=== PATIENT | male | born 1980 | race Caucasian/White ===

== ENCOUNTER 2020-01-18 13:25 | Emergency (ER) | payer MEDICAID ==
[2020-01-18] MEDS ORDERED: normal saline 1000ML IV soln IVB ONE (15:30)
[2020-01-18 15:48] LABS: BASOPHILS % (AUTO) 0.6 % (0-1); EOSINOPHILS # (AUTO) 0.1 X10'3 (0-0.9); EOSINOPHILS % (AUTO) 1.3 % (0-6); HEMATOCRIT 41.8 % (42.0-52.0); LYMPHOCYTES # (AUTO) 1.5 X10'3 (1.1-4.8); LYMPHOCYTES % (AUTO) 23.1 % (21-51); MEAN CORPUSCULAR HEMOGLOBIN 33.4 PG (27.0-31.0); MEAN CORPUSCULAR HGB CONC 33.5 g/dL (33.0-36.5); MEAN CORPUSCULAR VOLUME 99.9 FL (78-98); MEAN PLATELET VOLUME 7.1 FL (7.4-10.4); MONOCYTES # (AUTO) 0.8 X10'3 (0-0.9); MONOCYTES % (AUTO) 12.5 % (2-12); NEUTROPHILS # (AUTO) 3.9 X10'3 (1.8-7.7); NEUTROPHILS % (AUTO) 62.5 % (42-75); PLATELET COUNT 101 X10'3 (140-440); RED BLOOD COUNT 4.19 X10'6 (4.70-6.10); RED CELL DISTRIBUTION WIDTH 15.6 % (11.5-14.5); WHITE BLOOD COUNT 6.3 X10'3 (4.5-11.0)
[2020-01-18 16:04] LABS: ALANINE AMINOTRANSFERASE 209 U/L (12-78); ALBUMIN/GLOBULIN RATIO 0.7 (1.1-1.5); ALKALINE PHOSPHATASE 91 IU/L (46-116); ANION GAP 8 (8-16); ASPARTATE AMINO TRANSFERASE 197 U/L (10-37); BILIRUBIN,TOTAL 0.5 MG/DL (0.1-1.0); BLOOD UREA NITROGEN 7 MG/DL (7-18); BUN/CREATININE RATIO 6.4 (5.4-32.0); CALCIUM 8.3 MG/DL (8.5-10.1); CHLORIDE 103 MMOL/L (99-107); GLUCOSE 115 MG/DL (70-104); POTASSIUM 3.6 MMOL/L (3.5-5.1); SODIUM 138 MMOL/L (135-145); TOTAL CARBON DIOXIDE 27.1 MMOL/L (24-32); TOTAL PROTEIN 7.4 G/DL (6.4-8.2); eGFR 75 ML/MIN
[2020-01-18] MEDS ORDERED: CEPH250T PO (16:27)
[2020-01-18 16:44] VITALS: BP 148/102
== END 2020-01-18 16:46 | disposition home or self-care (01) ==
LOC: ER 13:26
DX: S80.811A Abrasion, right lower leg, initial encounter (principal); R74.0 Nonspecific elevation of levels of transaminase and lactic acid dehydrogenase [LDH]; R59.0 Localized enlarged lymph nodes; F17.200 Nicotine dependence, unspecified, uncomplicated; Z79.899 Other long term (current) drug therapy; X58.XXXA Exposure to other specified factors, initial encounter; Y93.89 Activity, other specified; Y92.89 Other specified places as the place of occurrence of the external cause; Y99.8 Other external cause status
CPT/HCPCS: 36415; 80053; 85025; 99283; J7030

== ENCOUNTER 2020-01-24 16:02 | Emergency (ER) | payer MEDICAID ==
[~2020-01-24] VITALS: Ht 185.4 cm; Wt 84.5 kg
[~2020-01-24 16:02] MED LIST: CEPH250T PO
[2020-01-24] MEDS ORDERED: normal saline 1000ML IV soln IV ONE (17:10)
[2020-01-24 18:15] LABS: BASOPHILS % (AUTO) 0.6 % (0-1); EOSINOPHILS # (AUTO) 0.2 X10'3 (0-0.9); HEMATOCRIT 42.4 % (42.0-52.0); HEMOGLOBIN 14.3 g/dl (14.0-17.9); LYMPHOCYTES # (AUTO) 2.2 X10'3 (1.1-4.8); LYMPHOCYTES % (AUTO) 28.4 % (21-51); MEAN CORPUSCULAR HEMOGLOBIN 33.9 PG (27.0-31.0); MEAN CORPUSCULAR HGB CONC 33.8 g/dL (33.0-36.5); MEAN CORPUSCULAR VOLUME 100.4 FL (78-98); MEAN PLATELET VOLUME 7.2 FL (7.4-10.4); MONOCYTES # (AUTO) 1.1 X10'3 (0-0.9); NEUTROPHILS # (AUTO) 4.3 X10'3 (1.8-7.7); PLATELET COUNT 151 X10'3 (140-440); RED BLOOD COUNT 4.22 X10'6 (4.70-6.10); RED CELL DISTRIBUTION WIDTH 15.9 % (11.5-14.5); WHITE BLOOD COUNT 7.8 X10'3 (4.5-11.0)
[2020-01-24] MEDS ORDERED: HYDROcodone/acetaminophen 5mg/325mg tablet PO ONE (18:35)
[2020-01-24] MEDS ORDERED: ondansetron 4mg rapidly disintigrating tab PO ONE (18:35)
[2020-01-24 18:39] VITALS: BP 101/73
[2020-01-24] MEDS ORDERED: HYDR-4383 PO (18:40)
[2020-01-24] MEDS ORDERED: ONDA4TAB6 PO (18:40)
[2020-01-24] MEDS ORDERED: CEPH250T PO (18:40)
[2020-01-24 18:42] LABS: ALANINE AMINOTRANSFERASE 132 U/L (12-78); ALBUMIN 3.4 G/DL (3.4-5.0); ALBUMIN/GLOBULIN RATIO 0.8 (1.1-1.5); ALKALINE PHOSPHATASE 125 IU/L (46-116); ANION GAP 10 (8-16); ASPARTATE AMINO TRANSFERASE 141 U/L (10-37); BILIRUBIN,TOTAL 0.5 MG/DL (0.1-1.0); BLOOD UREA NITROGEN 5 MG/DL (7-18); C-REACTIVE PROTEIN 0.31 MG/DL (0.0-0.5); CALCIUM 8.8 MG/DL (8.5-10.1); CHLORIDE 104 MMOL/L (99-107); CREATININE 1.24 MG/DL (0.60-1.10); GLUCOSE 101 MG/DL (70-104); POTASSIUM 3.5 MMOL/L (3.5-5.1); SODIUM 140 MMOL/L (135-145); TOTAL PROTEIN 7.8 G/DL (6.4-8.2); eGFR 65 ML/MIN
== END 2020-01-24 20:04 | disposition home or self-care (01) ==
LOC: ER 16:04
DX: S62.396A Other fracture of fifth metacarpal bone, right hand, initial encounter for closed fracture (principal); S62.521A Displaced fracture of distal phalanx of right thumb, initial encounter for closed fracture; S22.31XA Fracture of one rib, right side, initial encounter for closed fracture; J44.9 Chronic obstructive pulmonary disease, unspecified; R51 Headache; Z79.899 Other long term (current) drug therapy; W51.XXXA Accidental striking against or bumped into by another person, initial encounter; Y93.89 Activity, other specified; Y92.89 Other specified places as the place of occurrence of the external cause; Y99.8 Other external cause status
CPT/HCPCS: 29125; 36415; 70450; 71046; 73130; 80053; 83605; 83735; 84145; 85025; 85651; 86140; 87040; 96360; 96361; 99285; J7030

== ENCOUNTER 2020-05-05 18:31 | Emergency (ER) | payer MEDICAID ==
[~2020-05-05] VITALS: Ht 185.4 cm; Wt 88.6 kg
[~2020-05-05 18:31] MED LIST changes: -CEPH250T PO; +HYDR-4383 PO; +ONDA4TAB6 PO
[2020-05-05 18:35] VITALS: BP 98/60
== END 2020-05-05 19:41 | disposition home or self-care (01) ==
LOC: ER 18:32
DX: Z48.01 Encounter for change or removal of surgical wound dressing (principal); R50.9 Fever, unspecified; J43.9 Emphysema, unspecified; Z79.899 Other long term (current) drug therapy
CPT/HCPCS: 99281

== ENCOUNTER 2020-05-07 09:45 | Outpatient (CLI) | payer MEDICAID ==
[2020-05-07] MEDS ORDERED: LIDOcaine 2% 5ml jelly ONE (10:16)
== END 2020-05-07 23:59 | disposition home or self-care (01) ==
LOC: WOUND CARE 09:45
PROVIDERS: ATTEND Nurse Practitioner
DX: S61.401A Unspecified open wound of right hand, initial encounter (principal); L98.492 Non-pressure chronic ulcer of skin of other sites with fat layer exposed; J43.9 Emphysema, unspecified; F17.200 Nicotine dependence, unspecified, uncomplicated; Z86.19 Personal history of other infectious and parasitic diseases; Z79.899 Other long term (current) drug therapy; X58.XXXA Exposure to other specified factors, initial encounter; Y93.89 Activity, other specified; Y92.89 Other specified places as the place of occurrence of the external cause; Y99.8 Other external cause status
CPT/HCPCS: 11042; 11045; 87070; 87075

== ENCOUNTER 2020-05-15 10:43 | Outpatient (CLI) | payer MEDICAID ==
[2020-05-15] MEDS ORDERED: LIDOcaine 2% 5ml jelly ONE (11:36)
== END 2020-05-15 23:59 | disposition home or self-care (01) ==
LOC: WOUND CARE 10:43
PROVIDERS: ATTEND Nurse Practitioner Family
DX: S61.401D Unspecified open wound of right hand, subsequent encounter (principal); L98.492 Non-pressure chronic ulcer of skin of other sites with fat layer exposed; J43.9 Emphysema, unspecified; F17.200 Nicotine dependence, unspecified, uncomplicated; Z86.19 Personal history of other infectious and parasitic diseases; Z79.899 Other long term (current) drug therapy; X58.XXXD Exposure to other specified factors, subsequent encounter
CPT/HCPCS: 82948; 97605

== ENCOUNTER 2020-05-22 11:27 | Outpatient (CLI) | payer MEDICAID | END 2020-05-22 23:59 | disposition home or self-care (01) | LOC: WOUND CARE 11:27 | PROVIDERS: ATTEND Nurse Practitioner | DX: S61.401D Unspecified open wound of right hand, subsequent encounter (principal); L98.492 Non-pressure chronic ulcer of skin of other sites with fat layer exposed; J43.9 Emphysema, unspecified; F17.200 Nicotine dependence, unspecified, uncomplicated; Z86.19 Personal history of other infectious and parasitic diseases; Z79.899 Other long term (current) drug therapy; X58.XXXD Exposure to other specified factors, subsequent encounter | CPT/HCPCS: 97605 ==

== ENCOUNTER 2020-05-24 13:19 | Outpatient (CLI) | payer MEDICAID ==
[2020-05-24] MEDS ORDERED: CHLO25CA10 PO (15:07)
[2020-05-24] MEDS ORDERED: ALBU8.5H8 INH (15:07)
[2020-05-24] MEDS ORDERED: TIOT4MIS3 INH (15:07)
[2020-05-24] MEDS ORDERED: IBUP-1985 PO (15:07)
[2020-05-24] MEDS ORDERED: BUPR150T8 PO (15:07)
== END 2020-05-24 23:59 | disposition home or self-care (01) ==
LOC: WOUND CARE 13:19
PROVIDERS: ATTEND Nurse Practitioner
DX: S61.401D Unspecified open wound of right hand, subsequent encounter (principal); L98.492 Non-pressure chronic ulcer of skin of other sites with fat layer exposed; J43.9 Emphysema, unspecified; F17.200 Nicotine dependence, unspecified, uncomplicated; Z86.19 Personal history of other infectious and parasitic diseases; Z79.899 Other long term (current) drug therapy; X58.XXXD Exposure to other specified factors, subsequent encounter
CPT/HCPCS: 97605

== ENCOUNTER 2020-05-30 11:00 | Day surgery (SDC) | payer MEDICAID ==
[2020-05-24 14:35] LABS: BASOPHILS % (AUTO) 0.5 % (0-1); EOSINOPHILS # (AUTO) 0.2 X10'3 (0-0.9); EOSINOPHILS % (AUTO) 4.3 % (0-6); LYMPHOCYTES # (AUTO) 1.6 X10'3 (1.1-4.8); LYMPHOCYTES % (AUTO) 30.9 % (21-51); MEAN CORPUSCULAR HGB CONC 34.1 g/dL (33.0-36.5); MEAN CORPUSCULAR VOLUME 96.7 FL (78-98); MEAN PLATELET VOLUME 7.6 FL (7.4-10.4); MONOCYTES # (AUTO) 0.7 X10'3 (0-0.9); MONOCYTES % (AUTO) 14.4 % (2-12); NEUTROPHILS # (AUTO) 2.6 X10'3 (1.8-7.7); NEUTROPHILS % (AUTO) 49.9 % (42-75); PRE OP HEMOGLOBIN 13.3 g/dL (14.0-17.9); PRE OP PLATELET COUNT 122 X10'3 (140-440); RED BLOOD COUNT 4.03 X10'6 (4.70-6.10); RED CELL DISTRIBUTION WIDTH 14.6 % (11.5-14.5)
[2020-05-24 14:56] LABS: ALBUMIN 3.6 G/DL (3.4-5.0); ALBUMIN/GLOBULIN RATIO 0.8 (1.1-1.5); ALKALINE PHOSPHATASE 85 IU/L (46-116); BLOOD UREA NITROGEN 6 MG/DL (7-18); BUN/CREATININE RATIO 6.9 (5.4-32.0); CALCIUM 8.9 MG/DL (8.5-10.1); CHLORIDE 103 MMOL/L (99-107); CREATININE 0.87 MG/DL (0.60-1.10); PRE OP ANION GAP 4 (8-16); PRE OP BILIRUB, TOTAL 0.7 MG/DL (0.0-1.0); PRE OP GLUCOSE 100 MG/DL (70-104); PRE OP POTASSIUM 4.6 MMOL/L (3.4-5.1); PRE OP SODIUM 139 MMOL/L (135-145); TOTAL CARBON DIOXIDE 32.3 MMOL/L (24-32); TOTAL PROTEIN 8.2 G/DL (6.4-8.2); eGFR > 90 ML/MIN
[2020-05-24 15:00] LABS: PRE OP AST 153 U/L (10-37)
[2020-05-24 15:01] LABS: PRE OP ALT 235 U/L (30-65)
[~2020-05-30] VITALS: Ht 185.4 cm; Wt 90.8 kg
[2020-05-30] VITALS (9 sets, daily range): BP systolic 114–138; BP diastolic 74–94
[~2020-05-30 11:00] MED LIST changes: +ALBU8.5H8 INH; +BUPR150T8 PO; +CHLO25CA10 PO; +IBUP-1985 PO; -ONDA4TAB6 PO; +TIOT4MIS3 INH; +ceFAZolin 2gm in dextrose, iso 50 ML IV ONE; +famotidine 20mg tablet PO ONE; +ringers solution, lacted 1,000 ML IV SCH
[2020-05-30] MEDS ORDERED: ondansetron/PF 4mg/2ml inj ONE (14:08)
[2020-05-30] MEDS ORDERED: sevoflurane 250ml liquid IH ONE (14:08)
[2020-05-30] MEDS ORDERED: fentaNYL/PF 50MCG/1 ML 2ML syringe ONE (14:13)
[2020-05-30] MEDS ORDERED: dexamethasone sod phosphate 4mg/ml inj. ONE (14:24)
[2020-05-30] MEDS ORDERED: propofol inj 20 ML IV ONE (14:24)
[2020-05-30] MEDS ORDERED: midazolam 2 mg/2 ml injection ONE (14:24)
[2020-05-30] MEDS ORDERED: LIDOcaine 2% (20mg/ml) 5ml vial ONE (14:24)
[2020-05-30] MEDS ORDERED: ringers solution, lacted 1,000 ML IV SCH (14:35)
[2020-05-30] MEDS ORDERED: ondansetron/PF 4mg/2ml inj IV PRN (14:35)
[2020-05-30] MEDS ORDERED: morphine 2 MG/ML inj. syringe IV PRN (14:35)
[2020-05-30] MEDS ORDERED: meperidine/PF 25mg/ml syringe IV PRN ×3 (14:35)
[2020-05-30] MEDS ORDERED: morphine 4 MG/ML inj SYRINge IV PRN (14:35)
[2020-05-30] MEDS ORDERED: bacitracin 15gm ointment TP ONE (14:40)
--- NOTE | 2020-05-30 14:59 | NUR ---
Received from OR via [facility], accompanied by Anesthesiologist DR RIVERA and report given by Anesthesiologist. AWAKE, FOLLOWS COMMANDS EASILY. RIGHT HAND ACEWRAP CDI, MOVES FINGERS EASILY, WARM WITH MEDICAL RECEPTIONIST ASSISTANT WNL. IV PATENT LEFT FA #20 WIT LR 100MLS/HR. RIGHT HAND ELEVATED Addendum: 05/30/20 at 1509 by Olivia Christopher RN Amended: Links added.
[2020-05-30] MEDS ORDERED: oxyCODONE/APAP 10/325mg tablet PO ONE (15:30)
--- NOTE | 2020-05-30 16:09 | NUR ---
MALCOM PO WELL. STATES ADEQUATE DECREASING PAIN RELIEF RIGHT HAND. STATES READINESS TO DC HOME WHEN ASKED. RIGHT HAND DSG CDI. MOVES RIGHT FINGERS WELL WITH QA TESTER WNL. IV DC'D WITH CANNULA INTACT AND DSG APPLIED. DC INSTRUCTIONS REVIEWED WITH PT AND KAITLIN (VIA PHONE) WHO VERBALIZED UNDERSTANDING. D/C HOME VIA WC WITH ALL PERSONAL BELONGINGS TO PVT AUTO WITH KAITLIN TO RECEIVE Addendum: 05/30/20 at 1626 by Olivia Christopher RN Amended: Links added.
== END 2020-05-30 16:09 | disposition home or self-care (01) ==
LOC: PAS 11:00
PROVIDERS: ATTEND Surgery
DX: S61.451D Open bite of right hand, subsequent encounter (principal); L98.492 Non-pressure chronic ulcer of skin of other sites with fat layer exposed; W50.3XXD Accidental bite by another person, subsequent encounter; Y92.89 Other specified places as the place of occurrence of the external cause; Y93.89 Activity, other specified; J44.9 Chronic obstructive pulmonary disease, unspecified
CPT/HCPCS: 14040; 36415; 80053; 82948; 85025; 87635; A6222; J1100; J2001; J2250; J2405; J2704; J3010; A4618; A6449; A7000; J7120

== ENCOUNTER 2020-06-01 16:20 | Emergency (ER) | payer MEDICAID ==
[~2020-06-01] VITALS: Ht 185.4 cm; Wt 86.5 kg
[~2020-06-01 16:20] MED LIST changes: -ceFAZolin 2gm in dextrose, iso 50 ML IV ONE; -famotidine 20mg tablet PO ONE; -ringers solution, lacted 1,000 ML IV SCH
[2020-06-01 16:34] VITALS: BP 118/74
[2020-06-01] MEDS ORDERED: AMOX-422 PO (17:55)
== END 2020-06-01 18:39 | disposition home or self-care (01) ==
LOC: ER 16:21
DX: S61.401A Unspecified open wound of right hand, initial encounter (principal); J43.9 Emphysema, unspecified; F17.200 Nicotine dependence, unspecified, uncomplicated; F12.90 Cannabis use, unspecified, uncomplicated; F19.90 Other psychoactive substance use, unspecified, uncomplicated; Z86.19 Personal history of other infectious and parasitic diseases; Z72.89 Other problems related to lifestyle; Z59.0 Homelessness; Z88.8 Allergy status to other drugs, medicaments and biological substances; Z79.2 Long term (current) use of antibiotics; Z79.899 Other long term (current) drug therapy; X58.XXXA Exposure to other specified factors, initial encounter; Y93.89 Activity, other specified; Y92.89 Other specified places as the place of occurrence of the external cause; Y99.8 Other external cause status
CPT/HCPCS: 99283

== ENCOUNTER → 2020-07-19 | Outpatient (CLI) | payer MEDICAID ==
[~2020-07-19] MED LIST changes: +LIDOcaine 2% 5ml jelly ONE
== END | disposition home or self-care (01) ==
LOC: EDSTATUS 09:00 → WOUND CARE 09:20
PROVIDERS: ATTEND Nurse Practitioner
DX: S61.451D Open bite of right hand, subsequent encounter (principal); L98.495 Non-pressure chronic ulcer of skin of other sites with muscle involvement without evidence of necrosis; J43.9 Emphysema, unspecified; F17.200 Nicotine dependence, unspecified, uncomplicated; F12.90 Cannabis use, unspecified, uncomplicated; Z79.2 Long term (current) use of antibiotics; Z86.19 Personal history of other infectious and parasitic diseases; Z88.8 Allergy status to other drugs, medicaments and biological substances; Z79.899 Other long term (current) drug therapy; W50.3XXD Accidental bite by another person, subsequent encounter
CPT/HCPCS: 97597